=== PATIENT | female | born 1940 | race Caucasian/White ===

== ENCOUNTER 2022-04-26 15:01 | Outpatient (REF) | payer MEDICARE, SELFPAY ==
[2022-04-26 16:16] LABS: Anion Gap 16 (12-20); Blood Urea Nitrogen 15 mg/dL (9-16); Calcium 8.8 mg/dL (8.4-10.2); Carbon Dioxide 25 mmol/L (22-29); Chloride 102 mmol/L (96-108); Estimated Glomerular Filt Rate 50; Glucose Random 182 mg/dL (60-115); Potassium 5.5 mmol/L (3.3-5.1); Sodium 137 mmol/L (135-145)
[2022-04-26 16:38] LABS: T4 Thyroxine 7.1 ug/dL (4.5-12.0)
[2022-04-26 16:49] LABS: Vitamin B12 252 pg/mL (200-900)
== END 2022-04-26 15:02 | disposition home or self-care (01) ==
LOC: HO.LAB 15:01
PROVIDERS: Visit Provider Psychiatry & Neurology Neurology
DX: G30.9 Alzheimer's disease, unspecified (principal)
CPT/HCPCS: 36415; 80048; 82607; 82746; 84436; 84443

== ENCOUNTER 2023-05-15 16:20 | Outpatient (REF) | payer MEDICARE, OTHER, SELFPAY ==
--- NOTE | ~2023-05-15 | CT_ITS ---
EXAMINATION: CT HEAD WITHOUT CONTRAST CLINICAL INFORMATION: 82-year-old with Alzheimer's disease. COMPARISON: None available. TECHNIQUE: Contiguous axial imaging was performed from the skull base to vertex without intravenous administration of contrast. This CT examination was performed using dose optimization techniques as appropriate, variously including the following: *Automated exposure control *Adjustment of mA and/or kV according to patient size (this includes techniques or standardized protocols for targeted exams where dose is matched to indication/reason for exam; i.e. extremities or head) *Use of iterative reconstruction technique DLP: 656.31 mGy-cm FINDINGS: BRAIN VOLUME: There is [id number] generalized diffuse supratentorial brain parenchymal volume loss. Bilateral hippocampal volume loss appears to be proportionate to the degree of cortical parenchymal volume loss within the limitations of a qualitative assessment. STRUCTURAL: No malformations. BRAIN AND MENINGES: There is focal encephalomalacia in the left frontal lobe consistent with a remote left MCA infarct. There are patchy and focally confluent regions of hypodensity in the subcortical and deeper white matter of the frontal lobes bilaterally with hypodensity involving the anterior limbs of both internal capsules consistent with chronic ischemic microangiopathy. Small age-indeterminate lacunar infarcts are seen in the thalami bilaterally and right putamen. Small remote lacunar infarcts are seen in the caudate heads bilaterally. No acute territorial infarct, hemorrhage, extra-axial fluid collection, space-occupying process or mass effect. Atheromatous calcification of the carotid siphons bilaterally and small foci of calcified plaque of the vertebral arteries bilaterally. VENTRICLES AND SUBARACHNOID SPACES: The ventricular system and subarachnoid spaces are approximately proportional to the degree of parenchymal volume loss, without hydrocephalus. ORBITAL STRUCTURES: Evidence of a previous lens replacement on the left. Otherwise no acute findings. OSSEOUS STRUCTURES, SINUSES/MASTOIDS, EXTRACRANIAL SOFT TISSUES: The calvarium is intact. The visualized airspaces are unopacified. Small foci of cerumen in the EACs bilaterally. The visualized extracranial soft tissue structures appear grossly unremarkable. CT/CT head/brain wo IV con IMPRESSION: [id number]-[id number] generalized diffuse supratentorial brain parenchymal volume loss, with chronic ischemic microangiopathy in the white matter of both cerebral hemispheres and a remote left frontal lobe infarct. Small age-indeterminate lacunar infarcts in the thalami bilaterally and right putamen and tiny remote lacunar infarcts in the caudate heads bilaterally. No acute territorial infarct, hemorrhage, extra-axial fluid collection, space-occupying process or mass effect.
== END 2023-05-15 16:21 | disposition home or self-care (01) ==
LOC: HO.CT 16:20
PROVIDERS: Visit Provider Psychiatry & Neurology Neurology
DX: G30.9 Alzheimer's disease, unspecified (principal)
CPT/HCPCS: 70450